=== PATIENT | female | born 2000 | race Caucasian/White ===

== ENCOUNTER 2019-01-03 17:24 | Inpatient (IN) ==
[2019-01-03] MEDS ORDERED: SODIUM CHLORIDE 0.9% 500 ML IV SCH (17:45)
[2019-01-03 18:40] LABS: Hematocrit (blood only) 28.8 % (37-47); Hemoglobin 8.5 g/dL (12.0-16.0); Mean Corpuscular Hemoglobin 21.5 pg (25-34); Mean Corpuscular Hgb Conc 29.5 g/dL (32-36); Mean Corpuscular Volume 72.7 fL (80-100); Platelet Count 309 K/uL (130-400); RDW Coefficient of Variation 17.3 % (11.5-14.5); RDW Standard Deviation 46.6 fL (36.4-46.3); Red Blood Count 3.96 M/uL (4.2-5.4); White Blood Count 8.62 K/uL (4.8-10.8)
[2019-01-03 18:41] LABS: Basophils # (auto) 0.02 K/uL (0-0.2); Basophils % (auto) 0.2 %; Eosinophils # (auto) 0.07 K/uL (0-0.5); Eosinophils % (auto) 0.8 %; Hypochromasia Present; Immature Granulocytes # (auto) 0.03 K/uL (0.00-0.02); Immature Granulocytes % (auto) 0.3 %; Lymphocytes # (auto) 2.19 K/uL (1.2-3.4); Lymphocytes % (auto) 25.4 %; Monocytes # (auto) 0.69 K/uL (0.11-0.59); Neutrophils # (auto) 5.62 K/uL (1.4-6.5); Neutrophils % (auto) 65.3 %; Ovalocytes 1+; Polychromasia 1+; Tear Drop Cells Occasional
[2019-01-03 18:42] LABS: Albumin Level 4.1 gm/dl (3.4-5.0); Calcium 9.5 mg/dl (8.5-10.1); Creatinine Clr Calc Pharmacy 81.6 ml/min; Est GFR (Non-African American) 100.1; Potassium 3.6 mmol/L (3.5-5.1)
[2019-01-03 18:45] LABS: Albumin Globulin Ratio 0.9 (0.9-2); Bilirubin,Total 0.7 mg/dl (0.2-1); Globulin 4.4 gm/dl (2.5-4.0); Total Protein 8.5 gm/dl (6.4-8.2)
[2019-01-03 19:04] LABS: Pregnancy Test, Serum Negative (Negative)
[2019-01-03 19:51] LABS: Appearance Urine Clear (Clear); Bilirubin Urine Negative (Negative); Blood Urine Negative (Negative); Color Urine Yellow; Glucose Urine UA Negative (Negative); Ketones Urine Negative (Negative); Leukocyte Esterase Urine Negative (Negative); Nitrite Urine Negative (Negative); Protein Urine Negative (Negative); Urobilinogen Urine Negative (Negative); pH Urine 5.5 (4.5-7.5)
[2019-01-03] MEDS ORDERED: IOVERSOL 100ml IV PRN (20:38)
--- NOTE | 2019-01-03 20:55 | CT Scan Report ---
CT abd pelvis oral and IV con CLINICAL HISTORY: 18 years-old Female presenting with rlq abd pain. TECHNIQUE: Multidetector CT of the abdomen and pelvis was performed after the administration of oral and intravenous contrast. IV contrast: 94 mL of Optiray 320. One or more dose lowering techniques wer e used consistent with the principles of ALARA (as low as reasonably achievable), including automatic exposure control, mA or kV adjustment to individual patient size, and/or use of iterative reconstruc tion. COMPARISON: None. CT DOSE (mGy.cm): The estimated cumulative dose is 249.05 mGy.cm. FINDINGS: Newspaper Deliverer topogram: Unremarkable. Lung bases: Normal heart size. No pericardial or pleural effusion. No focal infiltrate or nodule at t he lung bases. Liver: Normal morphology. No liver lesion. Patent hepatic vasculature. Biliary: No intrahepatic or extrahepatic biliary ductal dilatation. Normal gallbladder. Pancreas: Normal. Spleen: Subcentimeter hypodense lesion in the spleen likely lymphangioma or hemangioma. Adrenal glands: Normal. Kidneys and ureters: Normal. No hydronephrosis. Bladder: Circumferential bladder wall thickening. Pelvic organs: Uterus and ovaries normal. Fluid noted in the vaginal vault. Bowel: The appendix is dilated with an apparent diameter of 11 mm. There is an appendicolith at the m id appendix. The appendix does not fill with oral contrast. There is suggestion of low density of the appendiceal wall suggesting edema. No periappendiceal fluid or fat infiltration. No bowel obstructio n. Peritoneal cavity: No free fluid or intraperitoneal gas. Lymph nodes: No enlarged lymph nodes in the abdomen or pelvis. Vasculature: Thrombus noted with in the left internal iliac vein (series 3 image 267). It is difficul t to assess if additional thrombus may also be present in smaller pelvic veins on the left. IVC paten t. Aorta normal in course and caliber. Abdominal wall: Normal. Musculoskeletal: Normal. IMPRESSION: 1. Dilated appendiceal diameter. The appendix does not opacify with oral contrast and contains an ap pendicolith. Findings are highly suspicious for acute appendicitis. Surgical consultation is recommen ded. 2. Limited acute appearing deep venous thrombosis within left internal iliac vein and possibly withi n smaller pelvic veins on the left. The report will be called/faxed according to standard departmental protocol for a critical finding. Electronically signed by: Konstantin Yip M.D. 01/03/2019 8:54 PM
[2019-01-03] MEDS ORDERED: BUPIVACAINE/EPINEPHRINE 0.5% MPF 1:200,000 30 ML VIAL ONE (21:06)
[2019-01-03] MEDS ORDERED: MIDAZOLAM HCL 1 MG/ML 2ML VIAL ONE (21:20)
[2019-01-03] MEDS ORDERED: fentaNYL citrate 100 MCG/2 ML VIAL ONE ×2 (21:20→22:33)
--- NOTE | 2019-01-03 21:38 | History & Physical Report ---
Date of Service January 03, 2019 Assessment & Plan (1) Appendicitis: IV antibiotics IVF to OR for lap appendectomy History of Present Illness Primary Care Provider: NO PCP This is a 18YO female with two days of abdominal pain with nausea and anorexia. She denies fever, chills, urinary symptoms, or vomiting. A CT scan shows early appendicitis with a fecalith and dilated appendix. Allergies Allergy/AdvReac Type Severity Reaction Status Date / Time No Known Allergies Allergy Unverified 01/03/19 18:39 Home Medications Home Medications Medication Instructions Recorded Confirmed Type norgestimate-ethinyl estradiol 1 tab PO HS 01/03/19 01/03/19 History [[id number]] Past Med/Surg History Medical History No pertinent past medical history Family History Other No significant family history Social History Feels Safe at Home: Yes Smoking Status: Never smoker Review of Systems + anorexia; no fever and no chills no problem reported no problem reported no cough and no dyspnea no chest pain, no dyspnea and no palpitations + abdominal pain and + nausea; no vomiting and no change in stools no dysuria no back pain no problem reported no problem reported no problem reported no problem reported no problem reported no problem reported Physical Exam Constitutional: well developed, well nourished and + thin Eyes: PERRL, conjunctivae normal, anicteric sclerae ENMT: external ear and nose normal, oropharynx normal Neck: trachea midline Respiratory: normal respiratory effort, lungs clear to auscultation Cardiovascular: RRR, no murmur, no edema Gastrointestinal (Abdomen): Inspection/Auscultation: abdomen normal to inspection and normal bowel sounds; no abdominal surgical incision Percussion/Palpation: + abdomen tender and + guarding Musculoskeletal: Head/Neck/Chest: normocephalic and head atraumatic Skin: no rashes, warm and dry Psychiatric: A+Ox3, euthymic affect Lymphatic: no lymphadenopathy ASA Classification ASA ASA1E Results & Data Vital Signs (Past 12 Hours) Vital Signs Temp Pulse Resp BP Pulse Ox 01/03/19 21:30 105 H 14 124/86 99 01/03/19 21:08 112 H 22 115/91 100 01/03/19 21:07 100 01/03/19 19:01 85 32 H 99 01/03/19 19:00 94 H 20 114/68 100 01/03/19 18:30 97 H 16 100 09/20/19 18:03 102 H 21 109/74 100 01/03/19 18:00 100 H 16 01/03/19 17:53 102 H 17 01/03/19 17:27 36.7 C 109 H 16 117/[address] abd pelvis oral and IV con CLINICAL HISTORY: 18 years-old Female presenting with rlq abd pain. TECHNIQUE: Multidetector CT of the abdomen and pelvis was performed after the administration of oral and intravenous contrast. IV contrast: 94 mL of Optiray 320. One or more dose lowering techniques were used consistent with the principles of ALARA (as low as reasonably achievable), including automatic exposure control, mA or kV adjustment to individual patient size, and/or use of iterative reconstruction. COMPARISON: None. CT DOSE (mGy.cm): The estimated cumulative dose is 249.05 mGy.cm. FINDINGS: Information Technology Teacher topogram: Unremarkable. Lung bases: Normal heart size. No pericardial or pleural effusion. No focal infiltrate or nodule at the lung bases. Liver: Normal morphology. No liver lesion. Patent hepatic vasculature. Biliary: No intrahepatic or extrahepatic biliary ductal dilatation. Normal gallbladder. Pancreas: Normal. Spleen: Subcentimeter hypodense lesion in the spleen likely lymphangioma or hemangioma. Adrenal glands: Normal. Kidneys and ureters: Normal. No hydronephrosis. Bladder: Circumferential bladder wall thickening. Pelvic organs: Uterus and ovaries normal. Fluid noted in the vaginal vault. Bowel: The appendix is dilated with an apparent diameter of 11 mm. There is an appendicolith at the mid appendix. The appendix does not fill with oral contrast. There is suggestion of low density of the appendiceal wall suggesting edema. No periappendiceal fluid or fat infiltration. No bowel obstruction. Peritoneal cavity: No free fluid or intraperitoneal gas. Lymph nodes: No enlarged lymph nodes in the abdomen or pelvis. Vasculature: Thrombus noted with in the left internal iliac vein (series 3 image 267). It is difficult to assess if additional thrombus may also be present in smaller pelvic veins on the left. IVC patent. Aorta normal in course and c aliber. Abdominal wall: Normal. Musculoskeletal: Normal. IMPRESSION: 1. Dilated appendiceal diameter. The appendix does not opacify with oral contrast and contains an appendicolith. Findings are highly suspicious for acute appendicitis. Surgical consultation is recommended. 2. Limited acute appearing deep venous thrombosis within left internal iliac vein and possibly within smaller pelvic veins on the left. The report will be called/faxed according to standard departmental protocol for a critical finding. Code Status & VTE Plan VTE Prophylaxis Plan VTE Prophylaxis will be ordered: Yes
--- NOTE | 2019-01-03 21:54 | Anesthesiology Consultation ---
Date of Service January 03, 2019 Assessment & Plan (1) Encounter for pre-operative examination: Chart Review Chart Review: Acceptable Risk for Surgery History Surgery Operation Date: 01/03/19 21:05 Proposed Procedures p Laparoscopic Appendectomy - Donis Olguin MD Height/Weight Height: 5 ft 2 in Weight: 48.4 kg Allergies Allergy/AdvReac Type Severity Reaction Status Date / Time No Known Allergies Allergy Unverified 01/03/19 18:39 Medications Home Medications Medication Instructions Recorded Confirmed Last Taken norgestimate-ethinyl estradiol 1 tab PO HS 01/03/19 01/03/19 01/02/19 [[id number]] Active Medications Generic Name Dose Route Start Last Admin Trade Name Freq PRN Reason Stop Dose Admin Ioversol 94 ml 01/03/19 20:38 01/03/19 20:38 Optiray 320 100ml IV 01/07/19 20:37 94 ml ONCE PRN Administration Interaction Checking NPO Date Last Intake of Fluids: 01/03/19 Time Last Intake of Fluids: 20:00 Date Last Intake of Solids: 01/02/19 Past Medical History Medical History Anemia No pertinent past medical history Exercise / Class Metabolic Activity 1 > 8 Run/Swim/Ski/Tennis Past Family History Family History Other No significant family history Past Surgical History Surgical History Hx of breast reduction, elective Past Anesthesia History No Hx of Anesthesia Complications History of PONV No Hx of PONV (Mild) and No Hx of Motion Sickness Social History Smoking Status: Never smoker Physical Exam Vital Signs Last Vital Signs Temp 36.7 C 01/03/19 17:27 Pulse 85 01/03/19 19:01 Resp 32 H 01/03/19 19:01 BP 114/68 01/03/19 19:00 Pulse Ox 99 01/03/19 19:01 Testing Laboratory Results 01/03/19 17:58 01/03/19 17:58 Urine Color Yellow 01/03/19 19:35 Urine Appearance Clear (Clear) 01/03/19 19:35 Urine pH 5.5 (4.5-7.5) 01/03/19 19:35 Ur Specific [place] 1.010 (1.000-1.030) 01/03/19 19:35 Urine Protein Negative (Negative) 01/03/19 19:35 Urine Glucose (UA) Negative (Negative) 01/03/19 19:35 Urine Ketones Negative (Negative) 01/03/19 19:35 Urine Nitrite Negative (Negative) 01/03/19 19:35 Ur Leukocyte Esterase Negative (Negative) 01/03/19 19:35
[2019-01-03] MEDS ORDERED: KETOROLAC 30 MG/ML VIAL IV PRN (21:57)
[2019-01-03] MEDS ORDERED: HYDROmorphone INJ 1 MG/ML SYRINGE IV PRN (21:57)
[2019-01-03] MEDS ORDERED: ATROPINE SULFATE 0.1 MG/ML 10ML SYR IV PRN (21:57)
[2019-01-03] MEDS ORDERED: ONDANSETRON INJ 2 MG/ML 2 ML VIAL IV PRN ×2 (21:57→23:43)
[2019-01-03] MEDS ORDERED: PROMETHAZINE HCL 6.25 MG in SODIUM CHLORIDE 0.9% 50 ML IV PRN (21:57)
--- NOTE | 2019-01-03 22:40 | Post Operative Brief Note ---
Immediate Post Op Note v1 Date of Surgery January 03, 2019 Pre & Post Diagnosis Operation Date: 01/03/19 21:05 Pre-Op Diagnosis: Acute appendicitis Post-Op Diagnosis: Acute appendicitis Procedure Operation Date: 01/03/19 21:05 Actual Procedures p Laparoscopic Appendectomy - Donis Olguin MD Surgeon Donis Olguin MD Inspector Conveyor Line none Estimated Blood Loss 5 Findings Consistent with Post-Op Diagnosis
[2019-01-03] MEDS ORDERED: LIDOCAINE HCL 2% 2 ML VIAL/AMP(20MG/ML) INFIL ONE (22:54)
[2019-01-03] MEDS ORDERED: ONDANSETRON INJ 2 MG/ML 2 ML VIAL ONE (22:54)
[2019-01-03] MEDS ORDERED: METOCLOPRAMIDE HCL INJ 5 MG/ML 2 ML VIAL ONE (22:54)
[2019-01-03] MEDS ORDERED: GLYCOPYRROLATE 0.2 MG/ML VIAL ONE (22:54)
[2019-01-03] MEDS ORDERED: NEOSTIGMINE METHYLSULFATE 5 MG/5 ML SYR ONE (22:54)
[2019-01-03] MEDS ORDERED: ROCURONIUM BROMIDE 10 MG/ML 5 ML VIAL ONE (22:54)
[2019-01-03] MEDS ORDERED: PROPOFOL IV EMULSION 10 MG/ML 20 ML VIAL IV ONE (22:54)
[2019-01-03] MEDS ORDERED: HYDROmorphone INJ 0.5 MG/0.5 ML SYR ONE (22:56)
--- NOTE | 2019-01-03 23:17 | Anesthesiology Progress Note ---
Date of Service January 03, 2019 Anesthesia Post Procedure Vital Signs Vital Signs: Temp Pulse Pulse Resp BP BP Pulse Ox 01/03/19 22:49 36.3 C L 92 H 23 100/73 100 01/03/19 21:30 105 H 14 124/86 99 01/03/19 21:08 112 H 22 115/91 100 01/03/19 21:07 100 01/03/19 19:01 85 32 H 99 01/03/19 19:00 94 H 20 114/68 100 01/03/19 18:30 97 H 16 100 01/03/19 18:03 102 H 21 109/74 100 01/03/19 18:00 100 H 16 01/03/19 17:53 102 H 17 01/03/19 17:27 36.7 C 109 H 16 117/80 100 Pain Intensity Bilateral Abdomen: Pain Intensity: 2 Transfer of Care Handoff Completed per policy Notes Mental Status: alert / awake / arousable Patient Amnestic to Procedure: Yes Nausea / Vomiting: adequately controlled Pain: adequately controlled Airway Patency, RR, SpO2: stable & adequate BP & HR: stable & adequate Hydration State: stable & adequate Anesthetic Complications: no major complications apparent
--- NOTE | 2019-01-03 23:42 | Emergency Department Note ---
Entered by Mike Ruffin acting as a scribe for Drew Isaac MD History of Present Illness General Chief complaint: Abdominal Pain Stated complaint: ABDOMINAL PAIN Time Seen by Provider: 01/03/19 17:33 Source: patient History of Present Illness Onset (ago): day(s) 1 Location: abdomen Radiation: non-radiation Pain Consistency: + constant Maximum Pain Intensity: 8 Current Pain Intensity: 9 Exacerbated By: + movement (walking) Associated symptoms: + denies other symptoms (diarrhea and urinary symptoms) and + nausea/vomiting (mild nausea); no fever/chills The patient is a 18 year old F who presents to the Emergency Room with complaints of constant abdominal pain that started 1 day ago. She describes her pain as severe. She rates her pain as 9 out of 10. She states that her pain does not radiate anywhere. She adds that walking worsens her pain. She notes that her symptoms started yesterday morning after eating a bagel and drinking some coffee. She states that she is currently experiencing mild nausea. She denies currently experiencing diarrhea, fevers, and urinary symptoms. She also denies any previous abdominal surgeries, ovarian cysts, and concerns for . She notes that she saw urgent care today who referred her to the ED. Home Medications Home Medications Medication Instructions Recorded Confirmed Type norgestimate-ethinyl estradiol 1 tab PO HS 01/03/19 01/03/19 History [[id number]] Allergies Allergy/AdvReac Type Severity Reaction Status Date / Time No Known Allergies Allergy Unverified 01/03/19 18:39 Past Med/Surg History Medical History Anemia No pertinent past medical history Surgical History Hx of breast reduction, elective Family History Other No significant family history Social History Feels Safe at Home: Yes Smoking Status: Never smoker Review of Systems See HPI for pertinent positives & negatives. and A total of 10 systems reviewed and were otherwise negative Physical Exam Vital Signs Vital Signs - 24 hr 01/03/19 17:27 01/03/19 17:53 01/03/19 18:00 Temperature 36.7 C Temperature Source Oral Sepsis Recent Fever Within 48 Hours No Sepsis Action Taken by Nursing No Action Required Pulse Rate 109 H 102 H 100 H Pulse Rate [Apical] Pulse Rate from SpO2 Sensor Pulse Rhythm [Apical] Respiratory Rate 16 17 16 Respiratory Effort / Characteristics Respiratory Depth Respiratory Pattern Blood Pressure 117/80 Blood Pressure [Left Arm] Blood Pressure Mean 92 Blood Pressure Mean [Left Arm] Blood Pressure Position Sitting Blood Pressure Position [Left Arm] Pulse Oximetry 100 Oxygen Delivery Method Oxygen Flow Rate 01/03/19 18:03 01/03/19 18:30 01/03/19 19:00 Temperature Temperature Source Sepsis Recent Fever Within 48 Hours Sepsis Action Taken by Nursing Pulse Rate 102 H 97 H 94 H Pulse Rate [Apical] Pulse Rate from SpO2 Sensor 105 H 96 H 92 H Pulse Rhythm [Apical] Respiratory Rate 21 16 20 Respiratory Effort / Characteristics Respiratory Depth Respiratory Pattern Blood Pressure 109/74 114/68 Blood Pressure [Left Arm] Blood Pressure Mean 85 83 Blood Pressure Mean [Left Arm] Blood Pressure Position Blood Pressure Position [Left Arm] Pulse Oximetry 100 100 100 Oxygen Delivery Method Oxygen Flow Rate 01/03/19 19:01 01/03/19 21:07 01/03/19 21:08 Temperature Temperature Source Sepsis Recent Fever Within 48 Hours Sepsis Action Taken by Nursing Pulse Rate 85 112 H Pulse Rate [Apical] Pulse Rate from SpO2 Sensor 87 107 H 114 H Pulse Rhythm [Apical] Respiratory Rate 32 H 22 Respiratory Effort / Characteristics Respiratory Depth Respiratory Pattern Blood Pressure 115/91 Blood Pressure [Left Arm] Blood Pressure Mean 99 Blood Pressure Mean [Left Arm] Blood Pressure Position Blood Pressure Position [Left Arm] Pulse Oximetry 99 100 100 Oxygen Delivery Method Oxygen Flow Rate 01/03/19 21:30 01/03/19 22:05 01/03/19 22:49 Temperature 36.3 C L Temperature Source Temporal Artery Scan Sepsis Recent Fever Within 48 Hours Sepsis Action Taken by Nursing Pulse Rate 105 H Pulse Rate [Apical] 63 92 H Pulse Rate from SpO2 Sensor 107 H Pulse Rhythm [Apical] Regular Regular Respiratory Rate 14 13 23 Respiratory Effort / Characteristics Non-Labored Spontaneous Non-Labored Spontaneous Respiratory Depth Normal Normal Respiratory Pattern Regular Regular Blood Pressure 124/86 Blood Pressure [Left Arm] 108/69 100/73 Blood Pressure Mean 98 Blood Pressure Mean [Left Arm] 82 82 Blood Pressure Position Blood Pressure Position [Left Arm] Lying Pulse Oximetry 99 100 100 Oxygen Delivery Method Oxymask Oxymask Oxygen Flow Rate 4 10 01/03/19 22:55 01/03/19 23:15 01/03/19 23:25 Temperature 36.5 C Temperature Source Temporal Artery Scan Sepsis Recent Fever Within 48 Hours Sepsis Action Taken by Nursing Pulse Rate Pulse Rate [Apical] 78 66 72 Pulse Rate from SpO2 Sensor Pulse Rhythm [Apical] Regular Regular Regular Respiratory Rate 18 16 16 Respiratory Effort / Characteristics Non-Labored Spontaneous Non-Labored Spontaneous Non-Labored Spontaneous Respiratory Depth Normal Normal Normal Respiratory Pattern Regular Regular Regular Blood Pressure Blood Pressure [Left Arm] 100/66 109/70 114/74 Blood Pressure Mean Blood Pressure Mean [Left Arm] 77 83 87 Blood Pressure Position Blood Pressure Position [Left Arm] Lying Lying Pulse Oximetry 100 100 100 Oxygen Delivery Method Oxymask Nasal Cannula Nasal Cannula Oxygen Flow Rate 8 2 2 GENERAL: Patient is in no acute distress. HEENT: No acute trauma, normocephalic atraumatic, mucous membranes moist, no nasal congestion, no scleral icterus. NECK: No stridor, no adenopathy, no meningismus, trachea is midline. LUNGS: Clear to auscultation bilaterally, no wheeze, no rhonchi, breath sounds equal. HEART: Subtle systolic murmur, mild tachycardia with a normal rhythm. ABDOMEN: Soft, diffusely tender but mostly tender in RLQ, bowel sounds positive, no hernias, no peritonitis. EXTREMITIES: No cyanosis or edema, full range of motion of all the joints without pain or difficulty, no signs for acute trauma. NEUROLOGIC: Oriented x 3, no acute motor or sensory deficits, no focal weakness. SKIN: No rash, no jaundice, no diaphoresis. Course 1734: The patient was evaluated in room B12B. A complete history and physical exam was performed. 1957: I re-checked the patient. She states that she is doing fine. 2100: I reviewed the patient's case with Dr. Olguin, [facility] [place]. He will evaluate the patient for further management. Consultations Consultation #1: I reviewed the patient's case with Dr. Olguin, [facility] [place]. He will evaluate the patient for further management. Time: 21:00 Administered Medications Ioversol (Optiray 320 100ml) 94 ml IV ONCE PRN PRN Reason: Interaction Checking Stop: 01/07/19 20:37 Last Admin: 01/03/19 20:38 Dose: 94 ml Documented by: [id number] Discontinued Medications Bupivacaine HCl/Epinephrine Bitart (Sensorcaine/Epinephrine 0.5% Mpf 1:200,000) Confirm Administered Dose 30 ml .ROUTE .STK-MED ONE Stop: 01/03/19 21:07 Last Admin: 01/03/19 22:30 Dose: 20 ml Documented by: [id number] Hydromorphone HCl (Dilaudid) Confirm Administered Dose 0.5 mg .ROUTE .STK-MED ONE Stop: 01/03/19 22:57 Last Admin: 01/03/19 23:01 Dose: 0.25 mg Documented by: [id number] Sodium Chloride (Nss) 500 mls @ 999 mls/hr IV .Q31M PRASHANT Stop: 01/03/19 18:15 Last Infusion: 01/03/19 18:42 Dose: 0 mls/hr Documented by: [id number] Admin: 01/03/19 18:06 Dose: 999 mls/hr Documented by: [id number] Cefoxitin Sodium 1,000 mg/ (Dextrose) 60 mls @ 100 mls/hr IV ONCE PRASHANT Stop: 01/04/19 22:29 Last Admin: 01/03/19 22:09 Dose: 100 mls/hr Documented by: [id number] Medical Decision Making Differential Diagnosis Differential diagnosis includes: appendicitis, mesenteric adenitis, ovarian cyst, pancreatitis, biliary colic, UTI, musculoskeletal pain, , food borne illness Medical Records Attestation: I reviewed the patient's medical records. Home Medications Current Medication List: was personally reviewed by me Laboratory Data Attestation: I reviewed the patient's lab results. Result diagrams: 01/03/19 17:58 01/03/19 17:58 Lab Results 01/03/19 01/03/19 01/03/19 Range/Units 17:58 17:58 17:58 WBC 8.62 (4.8-10.8) K/uL RBC 3.96 L (4.2-5.4) M/uL Hgb 8.5 L (12.0-16.0) g/dL Hct 28.8 L (37-47) % MCV 72.7 L (80-100) fL MCH 21.5 L (25-34) pg MCHC 29.5 L (32-36) g/dL RDW Std Deviation 46.6 H (36.4-46.3) fL RDW Coeff of Alyssa 17.3 H (11.5-14.5) % Plt Count 309 (130-400) K/uL MPV 11.0 H (7.4-10.4) fL Immature Gran % (Auto) 0.3 % Neut % (Auto) 65.3 % Lymph % (Auto) 25.4 % [place] % (Auto) 8.0 % Eos % (Auto) 0.8 % Baso % (Auto) 0.2 % Immature Gran # (Auto) 0.03 H (0.00-0.02) K/uL Neut # (Auto) 5.62 (1.4-6.5) K/uL Lymph # (Auto) 2.19 (1.2-3.4) K/uL [place] # (Auto) 0.69 H (0.11-0.59) K/uL Eos # (Auto) 0.07 (0-0.5) K/uL Baso # (Auto) 0.02 (0-0.2) K/uL Polychromasia 1+ Hypochromasia Present Tear Drop Cells Occasional Ovalocytes 1+ Sodium 137 (136-145) mmol/L Potassium 3.6 (3.5-5.1) mmol/L Chloride 106 (98-107) mmol/L Carbon Dioxide 21 (21-32) mmol/L Anion Gap 11.0 (3-11) BUN 11 (7-18) mg/dl Creatinine 0.84 (0.6-1.2) mg/dl Est Cr Clr Drug Dosing 81.6 ml/min Est GFR ( Amer) 116.0 Est GFR (Non-Af Amer) 100.1 BUN/Creatinine Ratio 13.0 (10-20) Glucose 82 (70-99) mg/dl Calcium 9.5 (8.5-10.1) mg/dl Total Bilirubin 0.7 (0.2-1) mg/dl AST 14 L (15-37) U/L ALT 17 (12-78) U/L Alkaline Phosphatase 49 (45-117) U/L Total Protein 8.5 H (6.4-8.2) gm/dl Albumin 4.1 (3.4-5.0) gm/dl Globulin 4.4 H (2.5-4.0) gm/dl Albumin/Globulin Ratio 0.9 (0.9-2) Lipase 88 (73-393) U/L HCG, Qual Negative (Negative) Urine Color Urine Appearance (Clear) Urine pH (4.5-7.5) Ur Specific [place] (1.000-1.030) Urine Protein (Negative) Urine Glucose (UA) (Negative) Urine Ketones (Negative) Urine Blood (Negative) Urine Nitrite (Negative) Urine Bilirubin (Negative) Urine Urobilinogen (Negative) Ur Leukocyte Esterase (Negative) 01/03/19 Range/Units 19:35 WBC (4.8-10.8) K/uL RBC (4.2-5.4) M/uL Hgb (12.0-16.0) g/dL Hct (37-47) % MCV (80-100) fL MCH (25-34) pg MCHC (32-36) g/dL RDW Std Deviation (36.4-46.3) fL RDW Coeff of Alyssa (11.5-14.5) % Plt Count (130-400) K/uL MPV (7.4-10.4) fL Immature Gran % (Auto) % Neut % (Auto) % Lymph % (Auto) % [place] % (Auto) % Eos % (Auto) % Baso % (Auto) % Immature Gran # (Auto) (0.00-0.02) K/uL Neut # (Auto) (1.4-6.5) K/uL Lymph # (Auto) (1.2-3.4) K/uL [place] # (Auto) (0.11-0.59) K/uL Eos # (Auto) (0-0.5) K/uL Baso # (Auto) (0-0.2) K/uL Polychromasia Hypochromasia Tear Drop Cells Ovalocytes Sodium (136-145) mmol/L Potassium (3.5-5.1) mmol/L Chloride (98-107) mmol/L Carbon Dioxide (21-32) mmol/L Anion Gap (3-11) BUN (7-18) mg/dl Creatinine (0.6-1.2) mg/dl Est Cr Clr Drug Dosing ml/min Est GFR ( Amer) Est GFR (Non-Af Amer) BUN/Creatinine Ratio (10-20) Glucose (70-99) mg/dl Calcium (8.5-10.1) mg/dl Total Bilirubin (0.2-1) mg/dl AST (15-37) U/L ALT (12-78) U/L Alkaline Phosphatase (45-117) U/L Total Protein (6.4-8.2) gm/dl Albumin (3.4-5.0) gm/dl Globulin (2.5-4.0) gm/dl Albumin/Globulin Ratio (0.9-2) Lipase (73-393) U/L HCG, Qual (Negative) Urine Color Yellow Urine Appearance Clear (Clear) Urine pH 5.5 (4.5-7.5) Ur Specific [place] 1.010 (1.000-1.030) Urine Protein Negative (Negative) Urine Glucose (UA) Negative (Negative) Urine Ketones Negative (Negative) Urine Blood Negative (Negative) Urine Nitrite Negative (Negative) Urine Bilirubin Negative (Negative) Urine Urobilinogen Negative (Negative) Ur Leukocyte Esterase Negative (Negative) Imaging Data Radiologist's Impression: Radiology results as stated below per my review and the radiologist's interpretation: CT abd pelvis oral and IV con CLINICAL HISTORY: 18 years-old Female presenting with rlq abd pain. TECHNIQUE: Multidetector CT of the abdomen and pelvis was performed after the administration of oral and intravenous contrast. IV contrast: 94 mL of Optiray 320. One or more dose lowering techniques were used consistent with the principles of ALARA (as low as reasonably achievable), including automatic exposure control, mA or kV adjustment to individual patient size, and/or use of iterative reconstruction. COMPARISON: None. CT DOSE (mGy.cm): The estimated cumulative dose is 249.05 mGy.cm. FINDINGS: Living Coach topogram: Unremarkable. Lung bases: Normal heart size. No pericardial or pleural effusion. No focal infiltrate or nodule at the lung bases. Liver: Normal morphology. No liver lesion. Patent hepatic vasculature. Biliary: No intrahepatic or extrahepatic biliary ductal dilatation. Normal g allbladder. Pancreas: Normal. Spleen: Subcentimeter hypodense lesion in the spleen likely lymphangioma or hemangioma. Adrenal glands: Normal. Kidneys and ureters: Normal. No hydronephrosis. Bladder: Circumferential bladder wall thickening. Pelvic organs: Uterus and ovaries normal. Fluid noted in the vaginal vault. Bowel: The appendix is dilated with an apparent diameter of 11 mm. There is an appendicolith at the mid appendix. The appendix does not fill with oral contrast. There is suggestion of low density of the appendiceal wall suggesting edema. No periappendiceal fluid or fat infiltration. No bowel obstruction. Peritoneal cavity: No free fluid or intraperitoneal gas. Lymph nodes: No enlarged lymph nodes in the abdomen or pelvis. Vasculature: Thrombus noted with in the left internal iliac vein (series 3 image [id number]). It is difficult to assess if additional thrombus may also be present in smaller pelvic veins on the left. IVC patent. Aorta normal in course and caliber. Abdominal wall: Normal. Musculoskeletal: Normal. IMPRESSION: 1. Dilated appendiceal diameter. The appendix does not opacify with oral contrast and contains an appendicolith. Findings are highly suspicious for acute appendicitis. Surgical consultation is recommended. 2. Limited acute appearing deep venous thrombosis within left internal iliac vein and possibly within smaller pelvic veins on the left. The report will be called/faxed according to standard departmental protocol for a critical finding. Electronically signed by: Konstantin Yip M.D. 01/03/2019 8:54 PM Blood Pressure Blood Pressure Findings: Elevated blood pressure Blood Pressure Disposition: further management by hospitalist [facility] Narrative There is no leukocytosis. The patient is anemic though with a hemoglobin of 8.5. She has not had any recent bleeding or black/tarry stools. Platelet count was 309. Patient states her mother does carry history of anemia. There is no significant electrolyte abnormality or kidney failure. No liver enzyme elevations. No evidence for pancreatitis. testing was negative. Urinalysis does not show evidence for infection. Abdominal and pelvis CT does suggest acute appendicitis. On exam, the patient was tender in the right lower quadrant. Patient received IV saline, she did not require anything for pain. I talked about my findings with the patient. I spoke with case management. I did consult general surgery. The patient is going to the operating room for an appendectomy. Certainly, the findings on CT explain her discomfort. Impression & Plan Appendicitis, Anemia Discharge Plan Visit Data *Final* Discharge Date/Time: 01/03/19 21:37 Chief Complaint: Abdominal Pain Stated Complaint: ABDOMINAL PAIN ED Provider: Drew Isaac Discharge Problem: Appendicitis, Anemia Patient Disposition: Still a Patient Discharge Instructions Interventions: ED Discharge Assessment Last Done: 01/03/19 21:37 Discharge Problem: Appendicitis Qualifiers: Appendicitis type: acute appendicitis Acute appendicitis type: unspecified acute appendicitis type Qualified Code(s): K35.80 - Unspecified acute appendicitis Anemia Qualifiers: Anemia type: unspecified type Qualified Code(s): D64.9 - Anemia, unspecified The scribe's documentation has been prepared under my direction and personally reviewed by me in its entirety. I confirm that the note above accurately reflects all work, treatment, procedures, and medical decision making performed by me.
[2019-01-03] MEDS ORDERED: PROMETHAZINE HCL 25 MG in SODIUM CHLORIDE 0.9% 50 ML IV PRN (23:43)
[2019-01-03] MEDS ORDERED: MoRPHine SULFATE 10 MG/ML CARP/VIAL IV PRN (23:43)
[2019-01-03] MEDS ORDERED: MoRPHine SULFATE 2 MG/ML CARP IV PRN (23:43)
[2019-01-03] MEDS ORDERED: OXYCODONE HCL IR 5 MG TAB (IMMEDIATE RELEASE) PO PRN (23:43)
[2019-01-03] MEDS ORDERED: MoRPHine SULFATE 4 MG/ML 1 ML CARP\\VIAL IV PRN (23:43)
[2019-01-03] MEDS ORDERED: ACETAMINOPHEN 325 MG TAB PO PRN (23:43)
--- NOTE | 2019-01-04 00:56 | Operative Report ---
DATE OF OPERATION: 01/03/2019 PREOPERATIVE DIAGNOSIS: Acute appendicitis. POSTOPERATIVE DIAGNOSIS: Acute appendicitis. PROCEDURE PERFORMED: Laparoscopic appendectomy. SURGEON: Donis Olguin MD FASHION EDITOR: None. ANESTHESIA: General endotracheal. ESTIMATED BLOOD LOSS: 5 mL. DRAINS: None. COMPLICATIONS: None. SPECIMENS: Appendix sent for pathologic evaluation. INDICATION FOR PROCEDURE: This is a 18-year-old female who was admitted through the ED with complaints of 2 days of abdominal pain with some nausea and no vomiting. She underwent a CT scan which shows an acute appendicitis. The CT also incidentally showed possible left common iliac vein thrombus. We will have a hospitalist consult for this. We talked in detail about her appendicitis and recommended a laparoscopic appendectomy. We talked about the risk of open procedure, bleeding requiring transfusion, abscess requiring reoperation or drainage, and wound problems including hernia and wound infection. She understands this and wishes to proceed. DESCRIPTION OF PROCEDURE: The patient was taken to the OR and underwent excellent general endotracheal anesthesia. Abdomen was prepped and draped in normal sterile fashion. Transverse supraumbilical incision was made and a Veress needle was inserted into the peritoneal cavity with upward tension on the abdominal wall. Good pneumoperitoneum was achieved to 12 mmHg. A visualized 12 port was then placed. An 11 left lower quadrant port was placed, a 5 suprapubic and a 5 right upper quadrant. Her cecum was identified, it was grasped with a Katy clamp. She had a normal-appearing base of the appendix and then a dilated, inflamed appendix distal to the appendicolith. With tension placed on her appendix, a Harmonic scalpel was used to take down her mesoappendix down to the base of the appendix. A SANDER mayes 60 load was then used to transect her appendix at the base. The appendix was brought out through the left lower quadrant incision. The appendix was sent for pathologic evaluation. The port was placed. Good pneumoperitoneum was reestablished. The abdomen was then irrigated out with 300 mL of fluid. There was no spillage. Everything else appeared to be normal. Normal terminal ileum and normal-appearing uterus and ovaries. The ports were then removed. Pneumoperitoneum was decompressed. Vicryl suture was used to close the fascial defects and the 11 and 12 ports. A 0.5% Marcaine with epinephrine local was used to create a local field block. Interrupted Vicryl was used to close the skin. Steri-Strips and benzoin were used to reinforce the incision. Sterile dressings were applied. The patient tolerated the procedure well with no complications, sent to postop recovery for a period of observation, and then be discharged up to her room once she meets criteria. I attest to the content of the Intraoperative Record and any orders documented therein. Any exception s are noted below.
[2019-01-04] MEDS: LACTATED RINGER'S 1,000 ML IV SCH ×2 (01:09→08:33)
[2019-01-04] MEDS: OXYCODONE/ACETAMINOPHEN 5mg/325mg TAB PO PRN ×2 (01:10→11:29)
--- NOTE | 2019-01-04 01:32 | Consultation Report ---
DATE OF CONSULTATION: 01/04/2019 CHIEF COMPLAINT: Status post appendectomy, possible acute deep venous thrombosis. HISTORY OF PRESENT ILLNESS: This patient is a 18-year-old female with no significant past medical history, not on any medications except for control pills who presents with abdominal pain started since yesterday morning after breakfast and found to have acute appendicitis on CAT scan and she is status post laparoscopic appendectomy. Currently resting comfortably. Denies any pain. On imaging studies, CAT scan shows limited acute appearing deep vein thrombosis of the left internal iliac vein and possibly within small pelvic veins on the left side. The patient states that she does not smoke. No family history of blood clots. Denies any chest pain. No shortness of breath. No cough. No headache. No blurred vision. No earache. No runny nose. No sore throat. No swelling in the legs. No rash. Normal bowel and bladder movements. ALLERGIES: No known drug allergies. PAST MEDICAL HISTORY: None. PAST SURGICAL HISTORY: Breast reduction. MEDICATIONS: control pills. FAMILY HISTORY: Denies any family history. SOCIAL HISTORY: Denies smoking. Alcohol occasionally. Lives with friends REVIEW OF SYMPTOMS: As per HPI. Rest of review of symptoms negative. PHYSICAL EXAMINATION: GENERAL: The patient is alert and oriented, not in acute distress. VITAL SIGNS: Temperature 36.5, pulse 91, respiratory rate 14, blood pressure 117/75 and oxygen 95% on room air. HEENT: No icterus. NECK: Supple. CARDIOVASCULAR: S1, S2 heard. Regular rate and rhythm. No murmur. No gallop. RESPIRATORY SYSTEM: Normal AP diameter. No accessory muscle use. No wheezing. No crackles. ABDOMEN: Status post laparoscopic appendectomy. Surgical dressings intact. No drainage seen. CENTRAL NERVOUS SYSTEM: Alert, awake and oriented. Moves extremities. EXTREMITIES: No edema. No erythema seen. LABORATORY DATA: WBC 8.6, hemoglobin 8.5, hematocrit 28.8 and platelets 309. Sodium 137, potassium 3.6, chloride 106, carbon dioxide 21, BUN 11, creatinine 0.8, serum glucose 82, calcium 9.5, total bilirubin 0.7, AST 14, ALT 17, alkaline phosphatase 49 and lipase 88. HCG negative. Urinalysis negative. CT of abdomen and pelvis with contrast shows Dilated appendicular diameter.The appendix does not opacify with oral contrast and contains an appendicolith. Findings are highly suspicious for acute appendicitis. Surgical consultation is recommended. Limited acute deep vein thrombosis in the left internal iliac vein and possibly smaller pelvic veins on the left. ASSESSMENT AND PLAN: This is a 18-year-old female who presents with appendicitis. 1. Appendicitis. Status post laparoscopic appendectomy. Management as per Surgery. 2. Possible deep venous thrombosis in the left internal iliac vein and smaller pelvic veins. The patient is on control pills. Denies any smoking. Denies any family history. No anticoagulation for 24 hours as per Surgery. We will follow lower extremity Doppler. We may do CT angio of the abdomen and chest in a.m. 3. Anemia. Hemoglobin is 8.5. Microcytic. We will follow stool for Hemoccult and iron studies and vitamin B12 and folate levels.Also celiac studies. 4. Deep venous thrombosis prophylaxis, sequential compression devices for now. 5. Disposition as per Surgery. [facility]
--- NOTE | 2019-01-04 08:00 | Surgery Progress Note ---
Date of Service January 04, 2019 Assessment & Plan (1) Appendicitis: advance diet doing well Present on Admission?: Yes (2) DVT (deep venous thrombosis): appreciate medical consult US results pending anticoagulate tonight if indicated Present on Admission?: Yes Subjective Doing well Taking liquids Will advance diet appreciate medical consult; US results pending May anticoagulate beginning tonight at 10PM Review of Systems Constitutional: no fever and no chills Respiratory: no cough and no dyspnea Cardiovascular: no chest pain and no dyspnea Gastrointestinal: + abdominal pain (incisional); no nausea and no vomiting Musculoskeletal: no back pain Physical Exam Constitutional: WD/WN, vitals as above Neck: trachea midline Respiratory: normal respiratory effort, lungs clear to auscultation Cardiovascular: RRR, no murmur, no edema Gastrointestinal (Abdomen): Inspection/Auscultation: normal bowel sounds; abdomen not distended Percussion/Palpation: + abdomen tender (incisional) and abdomen soft Skin: no rashes, warm and dry Results & Data Vital Signs (Past 12 Hours) Vital Signs Temp Pulse Pulse Pulse Resp BP BP 01/04/19 07:17 36.6 C 98 H 16 109/69 01/04/19 02:53 36.8 C 92 H 18 112/69 01/04/19 01:53 87 01/04/19 01:50 37.0 C 106 H 14 112/71 01/04/19 00:41 36.9 C 92 H 14 113/72 01/04/19 00:11 36.5 C 91 H 14 117/75 01/03/19 23:40 36.7 C 80 16 114/68 01/03/19 23:25 36.5 C 72 16 114/74 01/03/19 23:15 66 16 109/70 01/03/19 22:55 78 18 100/66 01/03/19 22:49 36.3 C L 92 H 23 100/73 01/03/19 22:05 63 13 108/69 01/03/19 21:30 105 H 14 124/86 01/03/19 21:08 112 H 22 115/91 01/03/19 21:07 Pulse Ox 01/04/19 07:17 98 01/04/19 02:53 98 01/04/19 01:53 01/04/19 01:50 94 01/04/19 00:41 98 01/04/19 00:11 95 01/03/19 23:40 98 01/03/19 23:25 100 01/03/19 23:15 100 01/03/19 22:55 100 01/03/19 22:49 100 01/03/19 22:05 100 01/03/19 21:30 99 01/03/19 21:08 100 01/03/19 21:07 100 (1) Appendicitis Acute appendicitis type: unspecified acute appendicitis type Appendicitis type: acute appendicitis Qualified Code(s): K35.80 - Unspecified acute appendicitis
[2019-01-04 08:11] LABS: Ferritin 6.6 ng/ml (8-388)
--- NOTE | 2019-01-04 08:31 | Ultrasound Report ---
BILATERAL LOWER EXTREMITY VENOUS DOPPLER CLINICAL HISTORY: dvt? COMPARISON STUDY: CT of the abdomen and pelvis January 03, 2019. TECHNIQUE: Sonography of the deep venous system of the bilateral lower extremities was performed. Co mpression and augmentation were evaluated. FINDINGS: The bilateral common femoral, superficial femoral and popliteal veins were compressible. A ugmentation was normal. Flow was shown within the deep calf vessels. The iliac veins are not well vis ualized due to overlying bandages. IMPRESSION: 1. No evidence of deep venous thrombus within the bilateral lower extremities. 2. Iliac veins not well visualized due to overlying bandages. The finding on CT of January 03, 2019 is not well evaluated on this exam but remains suspicious for deep venous thrombus. Electronically signed by: Abel Lake M.D. 01/04/2019 8:29 AM
[2019-01-04] MEDS: BCP'S~ORDER AWAITING ACTION SCH ×3 (08:33→23:26)
[2019-01-04] MEDS ORDERED: FERROUS SULFATE 325 MG TAB PO SCH (10:35)
[2019-01-04 11:00] LABS: BUN Creatinine Ratio 6.7 (10-20); Calcium 8.5 mg/dl (8.5-10.1); Creatinine Clr Calc Pharmacy 92.7 ml/min; Est GFR (African American) 135.2; Est GFR (Non-African American) 116.6; Potassium 3.7 mmol/L (3.5-5.1)
[2019-01-04 11:09] LABS: Hemoglobin 6.2 g/dL (12.0-16.0); Mean Corpuscular Hemoglobin 21.5 pg (25-34); Mean Corpuscular Hgb Conc 29.5 g/dL (32-36); Mean Corpuscular Volume 72.7 fL (80-100); Mean Platelet Volume 9.8 fL (7.4-10.4); Platelet Count 205 K/uL (130-400); RDW Coefficient of Variation 17.1 % (11.5-14.5); RDW Standard Deviation 46.2 fL (36.4-46.3); Red Blood Count 2.89 M/uL (4.2-5.4); White Blood Count 6.76 K/uL (4.8-10.8)
--- NOTE | 2019-01-04 14:41 | Hospitalist Progress Note ---
Date of Service January 04, 2019 Assessment & Plan (1) Appendicitis: (2) DVT (deep venous thrombosis): (3) Iron deficiency anemia: s/p Doretha Cortez, Hb 8.5 on admit, now 6.3, repeat 6.3, d/w Dr Catherine, Start FeSO4 325 BID, f/u in his office, will discuss whether to give 1-2 units of PRBCs, d/w CV[facility] and Eliquis will be approved and we will start it in AM sec to low Hb. total cc time today 75 mins ROS-No Headache, No Visual Changes, No Nausea, No Vomiting, No Fever, No Chills, No Neck Pain or Stiffness, No Chest Pain, No Palpitations, No SOB, No PARISH, No Cough, No Sputum, No Wheezing, No Abdominal Pain, No Diarrhea, No Hematemesis, No Hemoptysis, No Unexpected Weight Loss, No Flank pain, No Melena, No Hematochezia, No Frequency, No Urgency, No Burning, No Hematuria, No Rashes, No Diaphoresis. Appetite is Normal, Weak, dizzy when she gets up, Pain controlled Physical Exam Gen-AAO x 3, NAD, Afebrile, Pleasant, thin Head-NCAT, EOMI, PERRLA, Anicteric Sclera, No Posterior Pharyngeal Erythema Neck-Supple, No JVD, No Thyromegaly, No Masses, No LAD, No Bruits Lungs-Clear to Auscultation Bilaterally, No Rales, No Rhonchi, No Wheezing, No Crepitus Chest-No S4, +S1, +S2, No S3, No Murmurs, No Rubs, No Gallops, No Ectopy Abdomen-Soft, Bowel Sounds Present, sore, Non Distended, No Hepatomegaly, No Splenomegaly, No Palpable Masses, No Rebound, No Rigidity, No Guarding Musculoskeletal-Full Range of Motion Bilaterally, No CVAT Extremities-No Cyanosis, No Clubbing, No Edema Nuero-Cranial Nerves II-XII grossly intact, Motor WNL, DTRs WNL, Strength WNL, Non Focal Psych-Normal Mood Results & Data Vital Signs (Past 12 Hours) Vital Signs Temp Pulse Resp BP Pulse Ox 01/04/19 11:04 37.1 C 94 H 16 101/76 99 01/04/19 07:17 36.6 C 98 H 16 109/69 98 01/04/19 02:53 36.8 C 92 H 18 112/69 98 Current Diagnoses Acute embolism and thrombosis of unspecified deep veins of unspecified lower extremity (01/03/19) Unspecified acute appendicitis (01/03/19) Unspecified appendicitis (01/03/19) Encounter for other preprocedural examination (01/03/19) Allergies No Known Allergies Allergy (Unverified 01/03/19 18:39) Height/Weight/Isolation Height 5 ft 2 in Weight 48.4 kg Chemistry 01/03/19 01/04/19 17:58 10:22 Sodium 137 141 Potassium 3.6 3.7 Chloride 106 110 H Carbon Dioxide 21 26 Anion Gap 11.0 5.0 BUN 11 5 L D Creatinine 0.84 0.74 Glucose 82 104 H Urinalysis 01/03/19 19:35 Urine Color Yellow Urine Appearance Clear Urine pH 5.5 Ur Specific Point 1.010 Urine Protein Negative Urine Glucose (UA) Negative Urine Ketones Negative Urine Blood Negative Urine Nitrite Negative Urine Bilirubin Negative (1) Appendicitis Acute appendicitis type: unspecified acute appendicitis type Appendicitis type: acute appendicitis Qualified Code(s): K35.80 - Unspecified acute appendicitis
[2019-01-04] MEDS ORDERED: SODIUM CHLORIDE 0.9% 250 ML IV PRN (14:47)
[2019-01-04] MEDS ORDERED: IRON SUCROSE 100 MG in 0.9 % SODIUM CHLORIDE 100 ML IV ONE (15:00)
[2019-01-04 19:10] LABS: Folate (Folic Acid) 13.74 ng/ml (>5.38)
[2019-01-05 06:07] LABS: Hemoglobin 8.8 g/dL (12.0-16.0); Mean Corpuscular Hemoglobin 23.4 pg (25-34); Mean Corpuscular Hgb Conc 30.3 g/dL (32-36); Mean Corpuscular Volume 77.1 fL (80-100); Mean Platelet Volume 10.7 fL (7.4-10.4); Platelet Count 212 K/uL (130-400); RDW Coefficient of Variation 17.9 % (11.5-14.5); RDW Standard Deviation 51.1 fL (36.4-46.3); Red Blood Count 3.76 M/uL (4.2-5.4); White Blood Count 6.15 K/uL (4.8-10.8)
[2019-01-05 06:55] LABS: BUN Creatinine Ratio 5.8 (10-20); Calcium 8.4 mg/dl (8.5-10.1); Creatinine Clr Calc Pharmacy 67.2 ml/min; Est GFR (African American) 91.7; Est GFR (Non-African American) 79.1; Potassium 3.3 mmol/L (3.5-5.1)
[2019-01-05] MEDS: BCP'S~ORDER AWAITING ACTION SCH (07:27)
--- NOTE | 2019-01-05 07:32 | Discharge Summary ---
Date of Service January 05, 2019 Admission HPI Per Admitting Provider This is a 18YO female with two days of abdominal pain with nausea and anorexia. She denies fever, chills, urinary symptoms, or vomiting. A CT scan shows early appendicitis with a fecalith and dilated appendix. Admission Exam Per Admitting Provider Constitutional: well developed, well nourished and + thin Eyes: PERRL, conjunctivae normal, anicteric sclerae ENMT: external ear and nose normal, oropharynx normal Neck: trachea midline Respiratory: normal respiratory effort, lungs clear to auscultation Cardiovascular: RRR, no murmur, no edema Gastrointestinal (Abdomen): Inspection/Auscultation: abdomen normal to inspection and normal bowel sounds; no abdominal surgical incision Percussion/Palpation: + abdomen tender and + guarding Musculoskeletal: Head/Neck/Chest: normocephalic and head atraumatic Skin: no rashes, warm and dry Psychiatric: A+Ox3, euthymic affect Lymphatic: no lymphadenopathy Principal Diagnosis (1) Appendicitis: (2) DVT (deep venous thrombosis): (3) Iron deficiency anemia: Discharge Exam ROS-No Headache, No Visual Changes, No Nausea, No Vomiting, No Fever, No Chills, No Neck Pain or Stiffness, No Chest Pain, No Palpitations, No SOB, No PARISH, No Cough, No Sputum, No Wheezing, No Abdominal Pain, No Diarrhea, No Hematemesis, No Hemoptysis, No Unexpected Weight Loss, No Flank pain, No Melena, No Hematochezia, No Frequency, No Urgency, No Burning, No Hematuria, No Rashes, No Diaphoresis. Appetite is Normal Physical Exam Gen-AAO x 3, NAD, Afebrile Head-NCAT, EOMI, PERRLA, Anicteric Sclera, No Posterior Pharyngeal Erythema Neck-Supple, No JVD, No Thyromegaly, No Masses, No LAD, No Bruits Lungs-Clear to Auscultation Bilaterally, No Rales, No Rhonchi, No Wheezing, No Crepitus Chest-No S4, +S1, +S2, No S3, No Murmurs, No Rubs, No Gallops, No Ectopy Abdomen-Soft, Bowel Sounds Present, Non Tender, Non Distended, No Hepatomegaly, No Splenomegaly, No Palpable Masses, No Rebound, No Rigidity, No Guarding Musculoskeletal-Full Range of Motion Bilaterally, No CVAT Extremities-No Cyanosis, No Clubbing, No Edema Nuero-Cranial Nerves II-XII grossly intact, Motor WNL, DTRs WNL, Strength WNL, Non Focal Psych-Normal Mood Discharge Data Allergies Allergy/AdvReac Type Severity Reaction Status Date / Time No Known Allergies Allergy Unverified 01/03/19 18:39 Consultations 01/03/19 23:43 Consult Hospitalist Routine Procedures Performed Operation Date: 01/03/19 21:05 Actual Procedures p Laparoscopic Appendectomy - Donis Olguin MD Ordered Studies 01/03/19 17:39 CT abd pelvis oral and IV con Stat 01/04/19 00:36 US venous doppler LE BI Routine Negative for DVT B/L LE Current Diagnoses Iron deficiency anemia, unspecified (01/03/19) Acute embolism and thrombosis of unspecified deep veins of unspecified lower extremity (01/03/19) Unspecified acute appendicitis (01/03/19) Unspecified appendicitis (01/03/19) Encounter for other preprocedural examination (01/03/19) Allergies No Known Allergies Allergy (Unverified 01/03/19 18:39) Height/Weight/Isolation Height 5 ft 2 in Weight 48.4 kg Chemistry 01/03/19 01/04/19 01/05/19 17:58 10:22 05:44 Sodium 137 141 142 Potassium 3.6 3.7 3.3 L Chloride 106 110 H 110 H Carbon Dioxide 21 26 26 Anion Gap 11.0 5.0 6.0 BUN 11 5 L D 6 L Creatinine 0.84 0.74 1.02 Glucose 82 104 H 105 H Urinalysis 01/03/19 19:35 Urine Color Yellow Urine Appearance Clear Urine pH 5.5 Ur Specific [place] 1.010 Urine Protein Negative Urine Glucose (UA) Negative Urine Ketones Negative Urine Blood Negative Urine Nitrite Negative Urine Bilirubin Negative Hospital Course (1) Appendicitis: (2) DVT (deep venous thrombosis): (3) Iron deficiency anemia: s/p Lap Dana, Hb 8.5 on admit, was 6.3, repeat 6.3, d/w Dr Catherine, Gave 2 Units PRBCs and 100 mg IV Venofer, f/u in his office, d/w [facility] and Eliquis will be approved, Start today before ÁLVARO, K-rider, RTS letter ROS-No Headache, No Visual Changes, No Nausea, No Vomiting, No Fever, No Chills, No Neck Pain or Stiffness, No Chest Pain, No Palpitations, No SOB, No PARISH, No Cough, No Sputum, No Wheezing, No Abdominal Pain, No Diarrhea, No Hematemesis, No Hemoptysis, No Unexpected Weight Loss, No Flank pain, No Melena, No Hematochezia, No Frequency, No Urgency, No Burning, No Hematuria, No Rashes, No Diaphoresis. Appetite is Normal, Weak, dizzy when she gets up, Pain controlled Physical Exam Gen-AAO x 3, NAD, Afebrile, Pleasant, thin Head-NCAT, EOMI, PERRLA, Anicteric Sclera, No Posterior Pharyngeal Erythema Neck-Supple, No JVD, No Thyromegaly, No Masses, No LAD, No Bruits Lungs-Clear to Auscultation Bilaterally, No Rales, No Rhonchi, No Wheezing, No Crepitus Chest-No S4, +S1, +S2, No S3, No Murmurs, No Rubs, No Gallops, No Ectopy Abdomen-Soft, Bowel Sounds Present, sore, Non Distended, No Hepatomegaly, No Splenomegaly, No Palpable Masses, No Rebound, No Rigidity, No Guarding Musculoskeletal-Full Range of Motion Bilaterally, No CVAT Extremities-No Cyanosis, No Clubbing, No Edema Nuero-Cranial Nerves II-XII grossly intact, Motor WNL, DTRs WNL, Strength WNL, Non Focal Psych-Normal Mood Total Time Total Time Spent Total Time Spent (In Minutes): 45 mins Total Time Includes: Examination of the Patient, Discharge Planning, Medication Reconciliation and Communication With Other Providers Discharge Plan Discharge Items Patient Disposition: Home - Self-Care Reason For Visit: APPENDICITIS Discharge Diagnosis: Appendicitis Fe deficiency Anemia Iliac and Pelvic Vein DVTs Condition on Discharge: Good Activity: Resume your previous activity Lifting: Gradually increase as tolerated Bathing: No limitations Sexual Activity: When tolerated Exercise/Sports: Gradually increase as tolerated Driving/Machine Use: No limitations Weightbearing: Full weightbearing Non-emergency contact: Primary Care Provider and Specialist Call non-emergency contact if: you have any medication questions Follow-up/Referrals: Keshav Catherine MD [Hospitalist] - (Call Sunday morning and let his office know that you are a hospital discharge and that Dr Catherine told Dr Zelaya he wants you seen this week.) PCP,NO [Primary Care Provider] - Diet: Regular Fluids: 2000ml (8 cups) Addtl Attending Provider Instructions: Monitor Hb Pending Studies at Discharge: No Stand-Alone Forms: My [facility] Medications and DC Order Prescriptions: New Eliquis 5 mg Tablet 10 mg PO BID Qty: 74 RF: 0 acetaminophen [Tylenol Extra Strength] 500 mg tablet 500 mg PO .[id number] Qty: 90 RF: 0 potassium chloride 20 mEq packet 20 meq PO DAILY Qty: 10 RF: 0 No Action norgestimate-ethinyl estradiol [Lln-Ng-Chfbys] 0.18/0.215/0.25 mg-25 mcg Tablet 1 tab PO HS RF: 0 Discharge Orders: Discharge Order (Routine); Ordered 01/05/19 Ordered By: Yordan Zelaya Admission Data Admit Date/Time: 01/03/19 23:43 Attending Provider: Donis Olguin Admit Provider: Donis Olguin Primary Care Provider: PCP,NO Other Providers: Soham Singletary ; Luana Donaldson ; Ariana Payne ; Macie Luna ; Indigo Cleary ; Elizabeth Sanders ; Colton Adams ; Jordan Dao ; Jose Ambriz ; Caroline Lundberg ; Stephanie Ngo HHiro ; Beba Rivera ; Issa Coffey ; Barb Barton ; Dale Walker ; Brooklyn Chery ; Yordan Zelaya ; Sierra Mendoza ; Keshav Larry ; Edwina Myers I.
[2019-01-05] MEDS ORDERED: POTASSIUM CHLORIDE / WTR 10 MEQ/100 ML PLCT IV SCH (08:00)
[2019-01-05] MEDS ORDERED: APIXABAN 5 MG TABLET PO SCH (09:00)
[2019-01-05] MEDS ORDERED: POTASSIUM CHLORIDE 20 MEQ TABCR PO STA (09:21)
[2019-01-10 23:47] LABS: IgA Serum 106 mg/dL (47-310); Tis Trans IgA 1 U/mL (<4)
== END 2019-01-05 11:33 | disposition home or self-care (01) | DRG 342 ==
LOC: ED 17:24 → 3N 21:37 → OR 21:37 → SUATTDRO 23:43
DX: I82.422 Acute embolism and thrombosis of left iliac vein; D50.9 Iron deficiency anemia, unspecified; K35.80 Unspecified acute appendicitis; I82.890 Acute embolism and thrombosis of other specified veins